=== PATIENT | male | born 1965 | race Caucasian/White ===

== ENCOUNTER 2016-12-30 15:43 | Inpatient (IN) | payer BC ==
[~2016-12-30] VITALS: Ht 185.4 cm; Wt 97.4 kg
[2016-12-30] MEDS ORDERED: FUROSEMIDE 40 MG/4 ML VIAL IV ONE (16:15)
[2016-12-30] MEDS ORDERED: methylPREDNISolone SOD SUCC 125 MG/2 ML VL IV ONE (16:15)
[2016-12-30 16:27] LABS: Basophils # (auto) 0.1 uL; Eosinophils # (auto) 0.3 uL; Eosinophils % (auto) 2.9 % (0.0-7.0); Hematocrit 45.8 % (41.0-53.0); Hemoglobin 15.5 g/dL (13.5-17.5); Lymphocytes # (auto) 1.3 uL; Lymphocytes % (auto) 12.4 % (10.0-50.0); Mean Corpuscular Hgb Conc. 33.8 g/dL (32.0-36.0); Mean Corpuscular Volume 94.5 fL (80.0-100.0); Mean Platelet Volume 7.7 fL (6.9-10.8); Neutrophils # (auto) 7.7 uL; Neutrophils % (auto) 73.7 % (37.0-80.0); Nucleated Red Blood Cells % 0.1 %; Platelet Count (auto) 331 10^3/uL (140-450); Red Cell Distribution Width 14.3 % (11.8-14.3); White Blood Cell 10.5 10^3/uL (4.4-10.8)
[2016-12-30 16:43] LABS: Lactic Acid w/Reflex 3.3 mmol/L (0.4-2.0)
[2016-12-30 16:52] LABS: Albumin 3.5 g/dL (3.4-5.0); BUN/Creatinine Ratio 5.3; Bilirubin, Total 0.6 mg/dL (0.2-1.0); Calcium 7.3 mg/dL (8.5-10.1); Potassium 4.1 mmol/L (3.5-5.1); Total Protein 7.7 g/dL (6.4-8.2)
[2016-12-30 16:53] LABS: B-Type Natriuretic Peptide 79.96 pg/mL (0-100)
[2016-12-30 17:05] LABS: Temperature: 24.5 C (20.0-25.0)
[2016-12-30] MEDS ORDERED: ALUM & MAG HYDROX-SIMETH LIQ(MAALOX) 30 ML PO ONE (17:15)
[2016-12-30] MEDS ORDERED: LORazepam 0.5 MG TAB PO PRN (17:15)
[2016-12-30] MEDS ORDERED: ACETAMINOPHEN 325 MG TAB PO PRN (17:15)
[2016-12-30] MEDS ORDERED: NITROGLYCERIN 0.4 MG SL TAB SL PRN ×2 (17:15)
[2016-12-30] MEDS ORDERED: MORPHINE SULF INJ 2 MG/ML SYRINGE 1ML IV PRN ×2 (17:15)
[2016-12-30] MEDS ORDERED: cefTRIAXone 1GM/50ML D5W 50 ML IV ONE (17:15)
[2016-12-30] MEDS ORDERED: ONDANSETRON HCL 4 MG/2 ML VIAL IV PRN (17:15)
[2016-12-30 17:16] LABS: REFLEX LACTIC ACID YES OR NO YES
[2016-12-30] MEDS ORDERED: LEVOFLOXACIN 500MG 100 ML IV ONE (17:45)
[2016-12-30] MEDS: FUROSEMIDE 40 MG/4 ML VIAL IV SCH (18:00)
[2016-12-30 18:11] LABS: Lactic Acid w/Reflex 2.5 mmol/L (0.4-2.0)
[2016-12-30] MEDS: LOSARTAN POTASSIUM 25 MG TAB PO SCH (18:23)
[2016-12-30 18:40] LABS: REFLEX LACTIC ACID YES OR NO YES
[2016-12-30] MEDS: buPROPion HCL 75 MG TAB PO SCH (19:04)
[2016-12-30] MEDS: ALBUTEROL SULF 2.5 MG/0.5ML(0.5%) NEB SOLN NEB SCH ×2 (19:36→23:25)
[2016-12-30] MEDS: IPRATROPIUM BROM 0.5 MG/2.5ML INH SOL NEB SCH ×2 (19:36→23:25)
[2016-12-30] MEDS: ZOLPIDEM TARTRATE 5 MG TAB PO PRN (21:21)
[2016-12-30] MEDS: CLINDAMYCIN 300MG IV 50 ML IV SCH (21:21)
[2016-12-30] MEDS: POTASSIUM CHL 10 Meq TABLET PO SCH (21:21)
[2016-12-30] MEDS: ATORVASTATIN 20 MG TAB PO SCH (21:21)
[2016-12-30] MEDS: SODIUM CHLOR 0.9% PF (SALINE LOCK) 10ML VIAL IV SCH (21:21)
[2016-12-30] MEDS: CARVEDILOL 3.125 MG TAB PO SCH (21:22)
[2016-12-30] MEDS: ENALAPRIL MALEATE 2.5 MG TAB PO SCH (21:22)
[2016-12-30 22:00] VITALS: BP 106/81
[2016-12-30 22:01] LABS: INR 1.03 (0.9-1.15); Prothrombin Time 11.2 sec (9.37-12.3)
[2016-12-30 23:58] VITALS: BP 110/80
[2016-12-31] MEDS: IPRATROPIUM BROM 0.5 MG/2.5ML INH SOL NEB SCH ×7 (03:25→22:59)
[2016-12-31] MEDS: ALBUTEROL SULF 2.5 MG/0.5ML(0.5%) NEB SOLN NEB SCH ×7 (03:25→22:59)
[2016-12-31 03:59] VITALS: BP 110/80
[2016-12-31 05:00] VITALS: BP 118/80
[2016-12-31] MEDS: FUROSEMIDE 40 MG/4 ML VIAL IV SCH ×2 (06:30→18:03)
[2016-12-31] MEDS: buPROPion HCL 75 MG TAB PO SCH ×2 (06:30→18:30)
[2016-12-31] MEDS: SODIUM CHLOR 0.9% PF (SALINE LOCK) 10ML VIAL IV SCH ×3 (06:30→21:26)
[2016-12-31] MEDS: CLINDAMYCIN 300MG IV 50 ML IV SCH ×3 (06:30→21:24)
[2016-12-31 07:48] LABS: Hematocrit 48.6 % (41.0-53.0); Hemoglobin 16.4 g/dL (13.5-17.5); Mean Corpuscular Hemoglobin 32.4 pg (28.0-32.0); Mean Corpuscular Hgb Conc. 33.8 g/dL (32.0-36.0); Mean Corpuscular Volume 95.9 fL (80.0-100.0); Platelet Count (auto) 335 10^3/uL (140-450); Red Cell Distribution Width 14.8 % (11.8-14.3); White Blood Cell 11.2 10^3/uL (4.4-10.8)
[2016-12-31 07:57] LABS: Metamyelocytes % 0; Myelocytes % 0; Promyelocytes % 0; Reactive Lymphocytes 0
[2016-12-31 08:05] LABS: Albumin 3.6 g/dL (3.4-5.0); BUN/Creatinine Ratio 8.9; Bilirubin, Total 0.6 mg/dL (0.2-1.0); Calcium 9.2 mg/dL (8.5-10.1); Magnesium 2.4 mg/dL (1.6-2.6); Potassium 5.1 mmol/L (3.5-5.1); Total Protein 8.3 g/dL (6.4-8.2)
[2016-12-31 09:00] VITALS: BP 154/98
[2016-12-31] MEDS: LOSARTAN POTASSIUM 25 MG TAB PO SCH ×2 (10:33→18:03)
[2016-12-31] MEDS: cefTRIAXone 1GM/50ML D5W 50 ML IV SCH (10:34)
[2016-12-31] MEDS: DOCUSATE SOD 100 MG CAP PO SCH (12:02)
[2016-12-31] MEDS: CARVEDILOL 3.125 MG TAB PO SCH ×2 (12:02→21:25)
[2016-12-31] MEDS: ASPirin 81 mg TAB PO SCH (12:02)
[2016-12-31] MEDS: POTASSIUM CHL 10 Meq TABLET PO SCH ×2 (12:02→21:26)
[2016-12-31] MEDS: ENALAPRIL MALEATE 2.5 MG TAB PO SCH ×2 (12:03→21:26)
[2016-12-31] MEDS: CLOPIDOGREL BISULFATE 75 MG TAB PO SCH (12:03)
[2016-12-31 13:00] VITALS: BP 129/90
[2016-12-31 16:21] VITALS: BP 133/92
[2016-12-31 17:36] LABS: Platelet Estimate Adequate
[2016-12-31] MEDS: ZOLPIDEM TARTRATE 5 MG TAB PO PRN (21:25)
[2016-12-31] MEDS: ATORVASTATIN 20 MG TAB PO SCH (21:25)
[2016-12-31 22:12] VITALS: BP 130/90
[2017-01-01 05:49] VITALS: BP 145/81
[2017-01-01] MEDS: ALBUTEROL SULF 2.5 MG/0.5ML(0.5%) NEB SOLN NEB SCH ×5 (06:24→22:20)
[2017-01-01] MEDS: IPRATROPIUM BROM 0.5 MG/2.5ML INH SOL NEB SCH ×5 (06:24→22:20)
[2017-01-01] MEDS: CLINDAMYCIN 300MG IV 50 ML IV SCH (06:45)
[2017-01-01] MEDS: FUROSEMIDE 40 MG/4 ML VIAL IV SCH ×2 (06:46→18:36)
[2017-01-01] MEDS: buPROPion HCL 75 MG TAB PO SCH ×2 (06:46→18:36)
[2017-01-01] MEDS: SODIUM CHLOR 0.9% PF (SALINE LOCK) 10ML VIAL IV SCH ×3 (06:46→21:08)
[2017-01-01 06:56] LABS: Basophils # (auto) 0 uL; Basophils % (auto) 0.3 % (0.0-2.0); Eosinophils # (auto) 0 uL; Eosinophils % (auto) 0.4 % (0.0-7.0); Hematocrit 47.9 % (41.0-53.0); Lymphocytes # (auto) 1.3 uL; Lymphocytes % (auto) 10.7 % (10.0-50.0); Mean Corpuscular Hemoglobin 31.8 pg (28.0-32.0); Mean Corpuscular Hgb Conc. 33.3 g/dL (32.0-36.0); Mean Corpuscular Volume 95.4 fL (80.0-100.0); Mean Platelet Volume 7.7 fL (6.9-10.8); Monocytes # (auto) 0.7 uL; Neutrophils # (auto) 10.2 uL; Neutrophils % (auto) 82.6 % (37.0-80.0); Nucleated Red Blood Cells % 0.1 %; Platelet Count (auto) 346 10^3/uL (140-450); Red Cell Distribution Width 14.5 % (11.8-14.3); White Blood Cell 12.4 10^3/uL (4.4-10.8)
[2017-01-01 07:23] LABS: Albumin 3.7 g/dL (3.4-5.0); Alkaline Phosphatase 154 U/L (45-117); Anion Gap 6 (5-15); Aspartate Aminotransferase 107 U/L (15-37); BUN/Creatinine Ratio 19.5; Bilirubin, Total 0.6 mg/dL (0.2-1.0); Blood Urea Nitrogen 17 mg/dL (7-18); Calcium 8.9 mg/dL (8.5-10.1); Carbon Dioxide 29 mmol/L (21-32); Chloride 97 mmol/L (98-107); GFR African American 119 mL/min; GFR Non-African American 98 mL/min; Glucose 110 mg/dL (74-106); Potassium 4.4 mmol/L (3.5-5.1); Sodium 132 mmol/L (136-145)
[2017-01-01 08:06] VITALS: BP 126/82
[2017-01-01] MEDS: cefTRIAXone 1GM/50ML D5W 50 ML IV SCH (09:35)
[2017-01-01] MEDS: LOSARTAN POTASSIUM 25 MG TAB PO SCH ×2 (09:38→18:37)
[2017-01-01] MEDS: CLOPIDOGREL BISULFATE 75 MG TAB PO SCH (09:41)
[2017-01-01] MEDS: DOCUSATE SOD 100 MG CAP PO SCH (09:42)
[2017-01-01] MEDS: ASPirin 81 mg TAB PO SCH (09:42)
[2017-01-01] MEDS: POTASSIUM CHL 10 Meq TABLET PO SCH (09:42)
[2017-01-01] MEDS: ENALAPRIL MALEATE 2.5 MG TAB PO SCH (09:44)
[2017-01-01] MEDS: CARVEDILOL 3.125 MG TAB PO SCH ×2 (10:00→21:30)
[2017-01-01 12:34] VITALS: BP 129/75
[2017-01-01] MEDS ORDERED: METOLAZONE 5 MG TAB PO ONE (13:30)
[2017-01-01] MEDS: guaiFENesin-DEXTROMETHORPHAN 5ML SYR PO PRN ×2 (15:03→21:29)
[2017-01-01 16:55] VITALS: BP 151/90
[2017-01-01] MEDS: POTASSIUM CHL 20 Meq TABLET PO SCH (21:09)
[2017-01-01] MEDS: ATORVASTATIN 20 MG TAB PO SCH (21:29)
[2017-01-01] MEDS: ZOLPIDEM TARTRATE 5 MG TAB PO PRN (21:30)
[2017-01-01 22:47] VITALS: BP 111/75
[2017-01-02 05:19] VITALS: BP 130/75
[2017-01-02 05:31] LABS: Basophils # (auto) 0.1 uL; Basophils % (auto) 0.7 % (0.0-2.0); Eosinophils # (auto) 0.2 uL; Eosinophils % (auto) 1.4 % (0.0-7.0); Hematocrit 48.7 % (41.0-53.0); Hemoglobin 16.3 g/dL (13.5-17.5); Lymphocytes # (auto) 1.3 uL; Mean Corpuscular Hemoglobin 31.8 pg (28.0-32.0); Mean Corpuscular Hgb Conc. 33.6 g/dL (32.0-36.0); Mean Corpuscular Volume 94.6 fL (80.0-100.0); Mean Platelet Volume 7.5 fL (6.9-10.8); Monocytes # (auto) 0.7 uL; Monocytes % (auto) 6.2 % (0.0-12.0); Neutrophils # (auto) 9.2 uL; Neutrophils % (auto) 80.7 % (37.0-80.0); Platelet Count (auto) 341 10^3/uL (140-450); Red Cell Distribution Width 14.2 % (11.8-14.3); White Blood Cell 11.4 10^3/uL (4.4-10.8)
[2017-01-02] MEDS: FUROSEMIDE 40 MG/4 ML VIAL IV SCH ×2 (05:45→18:01)
[2017-01-02] MEDS: SODIUM CHLOR 0.9% PF (SALINE LOCK) 10ML VIAL IV SCH ×3 (05:45→22:12)
[2017-01-02] MEDS: buPROPion HCL 75 MG TAB PO SCH ×2 (05:46→18:00)
[2017-01-02 05:50] LABS: Calcium 9.2 mg/dL (8.5-10.1); Potassium 4.4 mmol/L (3.5-5.1)
[2017-01-02 05:52] LABS: BUN/Creatinine Ratio 19.4
[2017-01-02] MEDS: ALBUTEROL SULF 2.5 MG/0.5ML(0.5%) NEB SOLN NEB SCH ×6 (06:00→22:00)
[2017-01-02] MEDS: IPRATROPIUM BROM 0.5 MG/2.5ML INH SOL NEB SCH ×6 (06:00→22:00)
[2017-01-02 07:00] VITALS: BP 124/87
[2017-01-02] MEDS: LOSARTAN POTASSIUM 25 MG TAB PO SCH ×2 (07:23→18:00)
[2017-01-02] MEDS ORDERED: LIDOCAINE 2%HCL (LOCAL ANESTH.) INJ 20ML MDV ONE ×2 (07:30→09:51)
[2017-01-02] MEDS ORDERED: IOHEXOL 350 MG/ML 100ML IJ ONE (07:30)
[2017-01-02] MEDS ORDERED: fentaNYL CITRATE 100 MCG/2 ML VL ONE (09:37)
[2017-01-02] MEDS ORDERED: MIDAZOLAM HCL 1MG/1ML-2 ML VIAL ONE (09:37)
[2017-01-02] MEDS ORDERED: SODIUM CHL 0.9% 0 ML ONE (09:38)
[2017-01-02] MEDS ORDERED: ANGIOMAX 250 MG VIAL IV ONE (09:38)
[2017-01-02] MEDS ORDERED: NITROGLYCERIN 0.4MG/DOSE SPRAY 4.9GM ONE (09:53)
[2017-01-02] MEDS ORDERED: METOLAZONE 5 MG TAB PO SCH (10:00)
[2017-01-02] MEDS: guaiFENesin-DEXTROMETHORPHAN 5ML SYR PO PRN (11:58)
[2017-01-02] MEDS ORDERED: HYDROmorphone HCL 2 MG/ML VL IV ONE (12:45)
[2017-01-02 12:56] VITALS: BP 136/88
[2017-01-02] MEDS: DOCUSATE SOD 100 MG CAP PO SCH (14:00)
[2017-01-02] MEDS: CARVEDILOL 3.125 MG TAB PO SCH ×2 (14:35→22:13)
[2017-01-02] MEDS: POTASSIUM CHL 20 Meq TABLET PO SCH ×2 (14:36→22:13)
[2017-01-02] MEDS: ASPirin 81 mg TAB PO SCH (14:36)
[2017-01-02 16:30] VITALS: BP 123/96
[2017-01-02 21:55] VITALS: BP 105/75
[2017-01-02] MEDS: ATORVASTATIN 20 MG TAB PO SCH (22:14)
[2017-01-03] MEDS: IPRATROPIUM BROM 0.5 MG/2.5ML INH SOL NEB SCH ×3 (02:46→10:00)
[2017-01-03] MEDS: ALBUTEROL SULF 2.5 MG/0.5ML(0.5%) NEB SOLN NEB SCH ×3 (02:46→10:00)
[2017-01-03 05:08] LABS: Basophils # (auto) 0.1 uL; Basophils % (auto) 0.6 % (0.0-2.0); Eosinophils # (auto) 0.2 uL; Hematocrit 48.2 % (41.0-53.0); Hemoglobin 16.7 g/dL (13.5-17.5); Lymphocytes % (auto) 9.8 % (10.0-50.0); Mean Corpuscular Hemoglobin 32.8 pg (28.0-32.0); Mean Corpuscular Hgb Conc. 34.6 g/dL (32.0-36.0); Mean Corpuscular Volume 94.9 fL (80.0-100.0); Mean Platelet Volume 7.6 fL (6.9-10.8); Monocytes # (auto) 0.8 uL; Monocytes % (auto) 7.2 % (0.0-12.0); Neutrophils # (auto) 8.5 uL; Neutrophils % (auto) 80.4 % (37.0-80.0); Nucleated Red Blood Cells % 0.1 %; Platelet Count (auto) 339 10^3/uL (140-450); Red Cell Distribution Width 14.4 % (11.8-14.3); White Blood Cell 10.6 10^3/uL (4.4-10.8)
[2017-01-03 05:13] VITALS: BP 107/70
[2017-01-03 05:19] LABS: BUN/Creatinine Ratio 20.2; Calcium 9.3 mg/dL (8.5-10.1); Potassium 4.3 mmol/L (3.5-5.1)
[2017-01-03] MEDS: SODIUM CHLOR 0.9% PF (SALINE LOCK) 10ML VIAL IV SCH (06:11)
[2017-01-03] MEDS: FUROSEMIDE 40 MG/4 ML VIAL IV SCH (06:11)
[2017-01-03] MEDS: buPROPion HCL 75 MG TAB PO SCH (06:11)
[2017-01-03] MEDS: LOSARTAN POTASSIUM 25 MG TAB PO SCH (08:02)
[2017-01-03] MEDS ORDERED: FURO40TA4 PO (08:11)
[2017-01-03] MEDS ORDERED: METF-370 PO (08:11)
[2017-01-03] MEDS ORDERED: ALBUAER3 IN (08:11)
[2017-01-03] MEDS ORDERED: ASPI81CH43 PO (08:11)
[2017-01-03] MEDS ORDERED: POTA10TA51 PO (08:11)
[2017-01-03] MEDS ORDERED: ATOR20TA50 PO (08:11)
[2017-01-03] MEDS ORDERED: METO25TA3 PO (08:12)
[2017-01-03 08:50] VITALS: BP 141/76
== END 2017-01-03 11:00 | disposition home or self-care (01) | DRG 286 ==
LOC: EDBD 15:43 → ER 15:43 → EDSEX 15:43 → TELE 15:44 → TELE-WESTW 20:17
PROVIDERS: ADMIT Internal Medicine; ATTEND Internal Medicine
PROC: 4A023N8 Measurement of Cardiac Sampling and Pressure, Bilateral, Percutaneous Approach (ICD-10-PCS; principal; 2017-01-03)
PROC: B2111ZZ Fluoroscopy of Multiple Coronary Arteries using Low Osmolar Contrast (ICD-10-PCS; 2017-01-03)
PROC: B41J1ZZ Fluoroscopy of Other Lower Arteries using Low Osmolar Contrast (ICD-10-PCS; 2017-01-03)
DX: I13.0 Hypertensive heart and chronic kidney disease with heart failure and stage 1 through stage 4 chronic kidney disease, or unspecified chronic kidney disease (principal); J18.9 Pneumonia, unspecified organism; J96.00 Acute respiratory failure, unspecified whether with hypoxia or hypercapnia; I50.43 Acute on chronic combined systolic (congestive) and diastolic (congestive) heart failure; E87.1 Hypo-osmolality and hyponatremia; J44.0 Chronic obstructive pulmonary disease with (acute) lower respiratory infection; E11.21 Type 2 diabetes mellitus with diabetic nephropathy; E66.01 Morbid (severe) obesity due to excess calories; E88.81 Metabolic syndrome and other insulin resistance; E11.22 Type 2 diabetes mellitus with diabetic chronic kidney disease; N18.2 Chronic kidney disease, stage 2 (mild); E78.5 Hyperlipidemia, unspecified; F17.210 Nicotine dependence, cigarettes, uncomplicated; I25.10 Atherosclerotic heart disease of native coronary artery without angina pectoris; I25.2 Old myocardial infarction; I87.2 Venous insufficiency (chronic) (peripheral); K43.9 Ventral hernia without obstruction or gangrene; M10.9 Gout, unspecified; Z79.84 Long term (current) use of oral hypoglycemic drugs
CPT/HCPCS: 36415; 71010; 71020; 75710; 80048; 80053; 80061; 83036; 83605; 83735; 83880; 84443; 84484; 84550; 85007; 85025; 85027; 85379; 85610; 87040; 93005; 93306; 93458; 93970; 94640; 96365; 96366; 96368; 96375; 99152; 99153; 99291; J0696; J1956; J2250; J3490